=== PATIENT | female | born 1985 | race Caucasian/White ===

== ENCOUNTER 2019-10-01 13:50 | Day surgery (SDC) | payer OTHER ==
[~2019-10-01] VITALS: Ht 157.5 cm; Wt 67.2 kg
[2019-10-01] MEDS ORDERED: LACTATED RINGERS 1,000 ML IV SCH (14:10)
[2019-10-01 14:18] VITALS: BP 115/78
[2019-10-01] MEDS ORDERED: FENTANYL PF 100 MCG/2ML ONE ×3 (14:19→17:35)
[2019-10-01] MEDS ORDERED: MIDAZOLAM 1 MG/ML, 2ML ONE (14:19)
[2019-10-01] MEDS ORDERED: SCOPOLAMINE PATCH, 1.5MG PATCH.TD72 TD STA (14:27)
[2019-10-01] MEDS ORDERED: ACETAMINOPHEN 500 MG TABLET PO ONE (14:30)
[2019-10-01] MEDS ORDERED: GABAPENTIN 300 MG CAPSULE PO ONE (14:30)
[2019-10-01] MEDS ORDERED: CITA20TA9 PO (14:32)
[2019-10-01] MEDS ORDERED: CEFAZOLIN 1,000 MG ONE (14:32)
[2019-10-01] MEDS ORDERED: ROCURONIUM 10MG/ML,5ML ONE (14:32)
[2019-10-01] MEDS ORDERED: NEOSTIGMINE 1 MG/ML, 10ML ONE (14:32)
[2019-10-01] MEDS ORDERED: PROPOFOL 10 MG/ML, 20ML ONE (14:32)
[2019-10-01] MEDS ORDERED: VALA500T PO (14:32)
[2019-10-01] MEDS ORDERED: SUCCINYLCHOLINE 20 MG/ML, 10ML ONE (14:32)
[2019-10-01] MEDS ORDERED: LORA-247 PO (14:32)
[2019-10-01] MEDS ORDERED: DEXAMETHASONE 4 MG/ML, 1ML ONE (14:32)
[2019-10-01] MEDS ORDERED: ALPR0.5T7 PO (14:32)
[2019-10-01] MEDS ORDERED: ONDANSETRON 2MG/ML, 2ML ONE (14:32)
[2019-10-01] MEDS ORDERED: GLYCOPYRROLATE 0.2MG/1ML, 5ML ONE (14:32)
[2019-10-01] MEDS ORDERED: L.AC1CAP6 PO (14:32)
[2019-10-01] MEDS ORDERED: SCOPOLAMINE PATCH, 1.5MG PATCH.TD72 TD ONE (14:35)
[2019-10-01 14:47] LABS: HCG UR SG 1.013 (1.003-1.030)
[2019-10-01 15:15] LABS: BASOPHILS # (AUTO) 0.04 x10^3/uL (0-0.1); BASOPHILS % (AUTO) 0 % (0-1); EOSINOPHILS # (AUTO) 0.13 x10^3/uL (0-0.4); EOSINOPHILS % (AUTO) 1 % (1-7); LYMPHOCYTES # (AUTO) 2.61 x10^3/uL (1-3.4); LYMPHOCYTES % (AUTO) 26 % (22-44); MD NO; MEAN CORPUSCULAR HEMOGLOBIN 31.2 pg (27.0-34.8); MEAN CORPUSCULAR HGB CONC 33.5 g/dL (32.4-35.8); MEAN CORPUSCULAR VOLUME 93.1 fL (80-100); MEAN PLATELET VOLUME 8.3 fL (7.4-10.4); MONOCYTES # (AUTO) 0.72 x10^3/uL (0.2-0.8); MONOCYTES % (AUTO) 7 % (2-9); NEUTROPHILS # (AUTO) 6.73 x10^3/uL (1.8-6.8); NEUTROPHILS % (AUTO) 66 % (42-75); PLATELET COUNT 277 x10^3/uL (130-400); RED BLOOD COUNT 4.02 x10^6/uL (3.82-5.3); RED CELL DISTRIBUTION WIDTH 13.3 % (9.6-15.2)
[2019-10-01 15:20] LABS: ALANINE AMINOTRANSFERASE 26 U/L (12-78); ALBUMIN 3.7 g/dL (3.4-5.0); ANION GAP 6 mmol/L (5-15); CALCIUM 8.6 mg/dL (8.5-10.1); CHLORIDE 110 mmol/L (98-107); CREATININE 0.66 mg/dL (0.55-1.02)
[2019-10-01 15:22] LABS: ALKALINE PHOSPHATASE 51 U/L (45-117); BILIRUBIN,TOTAL 0.5 mg/dL (0.2-1.0); TOTAL PROTEIN 7.1 g/dL (6.4-8.2)
[2019-10-01] MEDS ORDERED: BUPIVACAINE/PF 0.25% ONE (15:30)
[2019-10-01] MEDS ORDERED: EPINEPHRINE 1 MG/ML, 1ML ONE (15:31)
[2019-10-01] MEDS ORDERED: NEOSPORIN OINT, 15GM ONE (15:31)
[2019-10-01] MEDS ORDERED: HYDROmorphone 2 MG/ML, 1ML IVPush PRN (16:00)
[2019-10-01] MEDS ORDERED: ONDANSETRON 2MG/ML, 2ML IV PRN (16:00)
[2019-10-01] MEDS ORDERED: OXYcodone 5 MG/5 ML ORAL.SOL UDC PO PRN (16:00)
[2019-10-01] MEDS ORDERED: FENTANYL PF 100 MCG/2ML IV PRN (16:00)
[2019-10-01] MEDS ORDERED: MEPERIDINE/PF 25MG/ML,1ML IVPush PRN (16:00)
[2019-10-01] MEDS ORDERED: LIDOCAINE GEL 2%, 5ML ONE (16:08)
[2019-10-01] MEDS ORDERED: KETOROLAC 30 MG/1 ML ONE (16:20)
[2019-10-01] MEDS ORDERED: EPHEDRINE 50 MG/ML, 1ML ONE (16:36)
[2019-10-01] MEDS ORDERED: LIDOCAINE-MPF 2% ,5ML ONE (16:39)
[2019-10-01] MEDS ORDERED: SUGAMMADEX 200 MG/2 ML IVPush ONE (16:44)
[2019-10-01] MEDS ORDERED: PROMETHAZINE 25 MG/ML, 1ML ONE (17:35)
[2019-10-01] MEDS: PROMETHAZINE 25 MG/ML, 1ML IV PRN ×2 (17:38→17:55)
== END 2019-10-01 21:37 | disposition home or self-care (01) ==
LOC: OR 13:50
PROVIDERS: ATTEND Obstetrics & Gynecology Maternal & Fetal Medicine
DX: R10.2 Pelvic and perineal pain (principal); Z30.2 Encounter for sterilization; N94.6 Dysmenorrhea, unspecified; N83.01 Follicular cyst of right ovary; N80.0 Endometriosis of uterus; N94.89 Other specified conditions associated with female genital organs and menstrual cycle; K90.0 Celiac disease; Z79.899 Other long term (current) drug therapy; Z91.018 Allergy to other foods; Z98.890 Other specified postprocedural states; Z82.49 Family history of ischemic heart disease and other diseases of the circulatory system; Z83.3 Family history of diabetes mellitus; Z80.0 Family history of malignant neoplasm of digestive organs; Z80.3 Family history of malignant neoplasm of breast
CPT/HCPCS: 36415; 58661; 58662; 80053; 81025; 85025; 88305; J0171; J0330; J0690; J1100; J1885; J2250; J2405; J2550; J2704; J3010; J3490; J7120; J2710